=== PATIENT | female | born 1935 | race Caucasian/White ===

== ENCOUNTER 2020-08-14 15:54 | Inpatient (IN) | payer MEDICARE ==
[~2020-08-14] VITALS: Ht 167.6 cm; Wt 79.4 kg
[2020-08-14 16:06] VITALS: BP 125/75
[2020-08-14 16:12] LABS: BASO # 0.1 10*3/uL (0.0-0.1); BASO % 0.4 % (0.0-1.0); EOS # 0.1 10*3/uL (0.0-0.4); EOS % 0.8 % (1.0-4.0); HEMATOCRIT 46.7 % (37.0-47.0); LYMPH # 2.6 10*3/uL (1.3-4.4); LYMPH % 17.6 % (27.0-41.0); MEAN CELL VOLUME 91.2 fl (81.0-99.0); MEAN CORPUSCULAR HGB 29.3 pg (27.0-31.0); MEAN CORPUSCULAR HGB CONC 32.1 g/dl (33.0-37.0); MEAN PLATELET VOLUME 9.5 fl (9.6-12.3); MONO # 0.8 10*3/uL (0.1-1.0); MONO % 5.7 % (3.0-9.0); NEUT # 11.1 10*3/uL (2.3-7.9); PLATELET COUNT AUTOMATED 350 10*3/uL (130-400); RED BLOOD COUNT 5.12 10*6/uL (4.10-5.10); RED CELL DISTRI WIDTH 13.5 % (0-14.5); WHITE BLOOD COUNT 14.8 10*3/uL (4.8-10.8)
[2020-08-14 16:23] LABS: ACT PARTIAL THROMBO TIME 25.8 SECONDS (20.0-32.1)
[2020-08-14 16:32] LABS: ALBUMIN 3.1 gm/dl (3.1-4.5); BUN 15 mg/dl (7-24); CHLORIDE 106 mmol/L (98-107); CREATININE 0.88 mg/dL (0.55-1.02); LIPASE 86 U/L (73-393); POTASSIUM 3.6 mmol/L (3.5-5.1); SGOT/AST 21 IU/L (3-35); SGPT/ALT 24 U/L (12-78); SODIUM 139 mmol/L (136-145)
[2020-08-14 16:36] LABS: ALKALINE PHOSPHATASE 123 U/L (45-117); TOTAL PROTEIN 8.5 gm/dL (6.4-8.2); TROPONIN I < 0.015 ng/ml (<0.045)
[2020-08-14 17:15] LABS: BILIRUBIN Negative (Negative); BLOOD Negative (Negative); CLARITY Cloudy (Clear); COLOR Yellow (Yellow); GLUCOSE Negative (Negative); KETONE Negative (Negative); LEUKO ESTERASE 1+ (Negative); NITRITE Positive (Negative); PH 6.5 (4.5-8.0); UROBILINOGEN 0.2 E.U./dl (0.0-1.0)
[2020-08-14 17:34] LABS: BACTERIA 3+; EPITHELIAL CELLS TNTC; RBC 0-2 rbc/hpf (0-2); WBC 21-30 wbc/hpf (0-5)
[2020-08-14] MEDS ORDERED: DILTIAZEM 24HR180 MG PO (17:58)
[2020-08-14] MEDS ORDERED: POTASSIUM CHLO10 ME5 PO (17:58)
[2020-08-14] MEDS ORDERED: CITALOPRAM10 MG PO (17:58)
[2020-08-14] MEDS ORDERED: FUROSEMIDE40 MG PO (17:59)
[2020-08-14] MEDS ORDERED: METOPROLOL25 MG PO (17:59)
[2020-08-14] MEDS ORDERED: DIGOXIN125 MCG PO (17:59)
[2020-08-14] MEDS ORDERED: ATORVASTATIN CA10 M1 PO (18:00)
[2020-08-14] MEDS ORDERED: ELIQUIS5 M1 PO (18:02)
[2020-08-14 19:12] VITALS: BP 131/66
[2020-08-14 21:39] VITALS: BP 139/70
[2020-08-14 21:45] VITALS: BP 129/82
[2020-08-15] VITALS: BP 128/60
[2020-08-15 06:14] LABS: BASO # 0.1 10*3/uL (0.0-0.1); BASO % 0.6 % (0.0-1.0); EOS # 0.2 10*3/uL (0.0-0.4); EOS % 1.2 % (1.0-4.0); HEMATOCRIT 42.9 % (37.0-47.0); LYMPH # 2.4 10*3/uL (1.3-4.4); LYMPH % 16.5 % (27.0-41.0); MEAN CELL VOLUME 93.5 fl (81.0-99.0); MEAN CORPUSCULAR HGB 29.6 pg (27.0-31.0); MEAN CORPUSCULAR HGB CONC 31.7 g/dl (33.0-37.0); MEAN PLATELET VOLUME 10.1 fl (9.6-12.3); MONO # 1.1 10*3/uL (0.1-1.0); MONO % 7.3 % (3.0-9.0); NEUT # 10.7 10*3/uL (2.3-7.9); NEUT % 73.8 % (47.0-73.0); PLATELET COUNT AUTOMATED 305 10*3/uL (130-400); RED BLOOD COUNT 4.59 10*6/uL (4.10-5.10); RED CELL DISTRI WIDTH 13.5 % (0-14.5); WHITE BLOOD COUNT 14.4 10*3/uL (4.8-10.8)
[2020-08-15 08:00] VITALS: BP 109/50
[2020-08-15 12:00] VITALS: BP 106/58
[2020-08-15 16:00] VITALS: BP 116/81
[2020-08-15 17:41] VITALS: BP 104/68
[2020-08-15 20:00] VITALS: BP 116/65
[2020-08-16] VITALS: BP 112/90
[2020-08-16 08:00] VITALS: BP 144/86
[2020-08-16 12:00] VITALS: BP 123/67
[2020-08-16 16:00] VITALS: BP 99/55
[2020-08-16 20:00] VITALS: BP 108/58
[2020-08-17 00:01] VITALS: BP 116/50
[2020-08-17 06:13] LABS: BASO % 0.1 % (0.0-1.0); HEMATOCRIT 40.1 % (37.0-47.0); LYMPH # 1.9 10*3/uL (1.3-4.4); LYMPH % 10.9 % (27.0-41.0); MEAN CELL VOLUME 91.3 fl (81.0-99.0); MEAN CORPUSCULAR HGB 29.6 pg (27.0-31.0); MEAN CORPUSCULAR HGB CONC 32.4 g/dl (33.0-37.0); MEAN PLATELET VOLUME 9.8 fl (9.6-12.3); MONO # 1.3 10*3/uL (0.1-1.0); MONO % 7.6 % (3.0-9.0); NEUT # 13.9 10*3/uL (2.3-7.9); NEUT % 80.9 % (47.0-73.0); PLATELET COUNT AUTOMATED 307 10*3/uL (130-400); RED BLOOD COUNT 4.39 10*6/uL (4.10-5.10); RED CELL DISTRI WIDTH 13.3 % (0-14.5); WHITE BLOOD COUNT 17.2 10*3/uL (4.8-10.8)
[2020-08-17 08:00] VITALS: BP 99/50
[2020-08-17 12:00] VITALS: BP 114/62
[2020-08-17 16:00] VITALS: BP 101/48
[2020-08-17 19:06] VITALS: BP 112/60
[2020-08-17 20:00] VITALS: BP 109/61
[2020-08-18] VITALS: BP 100/55
[2020-08-18 06:31] LABS: BASO % 0.2 % (0.0-1.0); EOS # 0.1 10*3/uL (0.0-0.4); HEMATOCRIT 42.3 % (37.0-47.0); LYMPH # 2.7 10*3/uL (1.3-4.4); LYMPH % 19.1 % (27.0-41.0); MEAN CELL VOLUME 92.6 fl (81.0-99.0); MEAN CORPUSCULAR HGB 29.3 pg (27.0-31.0); MEAN CORPUSCULAR HGB CONC 31.7 g/dl (33.0-37.0); MEAN PLATELET VOLUME 9.6 fl (9.6-12.3); MONO # 1.2 10*3/uL (0.1-1.0); MONO % 8.8 % (3.0-9.0); NEUT # 9.9 10*3/uL (2.3-7.9); NEUT % 70.3 % (47.0-73.0); PLATELET COUNT AUTOMATED 285 10*3/uL (130-400); RED BLOOD COUNT 4.57 10*6/uL (4.10-5.10); RED CELL DISTRI WIDTH 13.5 % (0-14.5); WHITE BLOOD COUNT 14.1 10*3/uL (4.8-10.8)
[2020-08-18 06:43] LABS: BUN 16 mg/dl (7-24); CHLORIDE 107 mmol/L (98-107); CREATININE 0.66 mg/dL (0.55-1.02); POTASSIUM 3.6 mmol/L (3.5-5.1); SODIUM 142 mmol/L (136-145)
[2020-08-18 08:00] VITALS: BP 109/66
[2020-08-18] MEDS ORDERED: CIPRO500 MG PO (11:12)
[2020-08-18 12:00] VITALS: BP 114/61
== END 2020-08-18 14:30 | disposition home or self-care (01) | DRG 690 ==
LOC: ED 15:54 → EDHOLD 18:56 → 4E 18:56
PROVIDERS: Emergency Medicine; ADMIT Internal Medicine; ATTEND Internal Medicine
DX: N39.0 Urinary tract infection, site not specified (principal); I48.21 Permanent atrial fibrillation; F33.0 Major depressive disorder, recurrent, mild; I50.22 Chronic systolic (congestive) heart failure; R62.7 Adult failure to thrive; B96.20 Unspecified Escherichia coli [E. coli] as the cause of diseases classified elsewhere; E78.2 Mixed hyperlipidemia; I11.0 Hypertensive heart disease with heart failure; G30.9 Alzheimer's disease, unspecified; F02.80 Dementia in other diseases classified elsewhere, unspecified severity, without behavioral disturbance, psychotic disturbance, mood disturbance, and anxiety; Z68.28 Body mass index [BMI] 28.0-28.9, adult; Z79.01 Long term (current) use of anticoagulants; Z88.8 Allergy status to other drugs, medicaments and biological substances

== ENCOUNTER 2022-01-02 13:20 | Inpatient (IN) | payer MEDICARE ==
[~2022-01-02] VITALS: Ht 167.6 cm; Wt 75.7 kg
[~2022-01-02 13:20] MED LIST: ASPIRIN CHEWABL81 MG PO; ATORVASTATIN CA10 M1 PO; CIPRO500 MG PO; CITALOPRAM10 MG PO; DIGOX125 MCG PO; DIGOXIN125 MCG PO; DILTIAZEM 24HR180 MG PO; ELIQUIS5 M1 PO; FUROSEMIDE40 MG PO; LISINOPRIL2.5 MG PO; METOPROLOL25 MG PO; POTASSIUM CHLO10 ME5 PO; TOPROL XL50 M1 PO
[2022-01-02 13:24] VITALS: BP 107/53
[2022-01-02 13:51] LABS: HEMATOCRIT 40.1 % (37.0-47.0); MEAN CELL VOLUME 91.1 fl (81.0-99.0); MEAN CORPUSCULAR HGB 28.9 pg (27.0-31.0); MEAN CORPUSCULAR HGB CONC 31.7 g/dl (33.0-37.0); MEAN PLATELET VOLUME 9.3 fl (9.6-12.3); PLATELET COUNT AUTOMATED 367 10*3/uL (130-400); RED CELL DISTRI WIDTH 13.7 % (0-14.5); WHITE BLOOD COUNT 33.9 10*3/uL (4.8-10.8)
[2022-01-02 13:52] LABS: MANUAL DIFF REFLEX YES
[2022-01-02 14:01] LABS: BILIRUBIN Negative (Negative); BLOOD Trace-Lysed (Negative); CLARITY Clear (Clear); COLOR Yellow (Yellow); GLUCOSE Negative (Negative); KETONE Negative (Negative); LEUKO ESTERASE 1+ (Negative); NITRITE Positive (Negative); PH 6.5 (4.5-8.0)
[2022-01-02 14:08] LABS: ALKALINE PHOSPHATASE 123 U/L (45-117); BUN 16 mg/dl (7-24); CHLORIDE 102 mmol/L (98-107); CREATININE 0.93 mg/dL (0.55-1.02); LIPASE 75 U/L (73-393); POTASSIUM 3.7 mmol/L (3.5-5.1); SGOT/AST 104 IU/L (3-35); SGPT/ALT 51 U/L (12-78); SODIUM 139 mmol/L (136-145); TOTAL PROTEIN 7.3 gm/dL (6.4-8.2)
[2022-01-02 14:12] LABS: TOTAL CELLS COUNTED 100 #CELLS
[2022-01-02 14:13] LABS: PLATELET SUFFICIENCY NORMAL (NORMAL)
[2022-01-02 14:15] LABS: BACTERIA 3+; WBC 16-20 wbc/hpf (0-5)
[2022-01-02 16:51] VITALS: BP 128/70
[2022-01-02 19:05] VITALS: BP 133/65
[2022-01-02] MEDS ORDERED: DILTIAZEM 24HR180 MG PO (20:34)
[2022-01-02] MEDS ORDERED: Lopressor25 MG PO (20:36)
[2022-01-02] MEDS ORDERED: TRAZODONE50 MG PO (20:36)
[2022-01-03] VITALS: BP 104/59
[2022-01-03 04:55] LABS: BUN 15 mg/dl (7-24); CHLORIDE 102 mmol/L (98-107); CREATININE 0.96 mg/dL (0.55-1.02); POTASSIUM 3.8 mmol/L (3.5-5.1); SODIUM 137 mmol/L (136-145)
[2022-01-03 06:10] LABS: HEMATOCRIT 39.2 % (37.0-47.0); MEAN CELL VOLUME 93.1 fl (81.0-99.0); MEAN CORPUSCULAR HGB 28.3 pg (27.0-31.0); MEAN CORPUSCULAR HGB CONC 30.4 g/dl (33.0-37.0); MEAN PLATELET VOLUME 9.7 fl (9.6-12.3); PLATELET COUNT AUTOMATED 338 10*3/uL (130-400); RED BLOOD COUNT 4.21 10*6/uL (4.10-5.10); RED CELL DISTRI WIDTH 13.9 % (0-14.5)
[2022-01-03 06:15] LABS: MANUAL DIFF REFLEX YES
[2022-01-03 06:16] LABS: WHITE BLOOD COUNT 43.9 10*3/uL (4.8-10.8)
[2022-01-03 07:26] LABS: TOTAL CELLS COUNTED 100 #CELLS; TOXIC GRANULATION SLIGHT
[2022-01-03 07:27] LABS: BURR CELLS MODERATE; PLATELET SUFFICIENCY NORMAL (NORMAL); POLYCHROMASIA SLIGHT; ROULEAUX SLIGHT
[2022-01-03 08:00] VITALS: BP 108/73
[2022-01-03 12:00] VITALS: BP 97/50
[2022-01-03 16:00] VITALS: BP 116/60
[2022-01-03 20:00] VITALS: BP 102/48
[2022-01-04 06:22] LABS: POTASSIUM 3.4 mmol/L (3.5-5.1)
[2022-01-04 06:34] LABS: MEAN CELL VOLUME 92.3 fl (81.0-99.0); MEAN CORPUSCULAR HGB 28.7 pg (27.0-31.0); MEAN CORPUSCULAR HGB CONC 31.1 g/dl (33.0-37.0); MEAN PLATELET VOLUME 10.2 fl (9.6-12.3); PLATELET COUNT AUTOMATED 316 10*3/uL (130-400)
[2022-01-04 06:36] LABS: CREATININE 1.13 mg/dL (0.55-1.02)
[2022-01-04 06:39] LABS: MANUAL DIFF REFLEX YES
[2022-01-04 07:37] LABS: TOTAL CELLS COUNTED 100 #CELLS
[2022-01-04 07:38] LABS: BURR CELLS MODERATE; POLYCHROMASIA SLIGHT; TOXIC GRANULATION SLIGHT; VACUOLATION OF NEUTROPHILS SLIGHT
[2022-01-04 07:39] LABS: PLATELET SUFFICIENCY NORMAL (NORMAL); ROULEAUX SLIGHT
[2022-01-04 08:00] VITALS: BP 124/67
[2022-01-04 16:00] VITALS: BP 124/67
[2022-01-04 20:00] VITALS: BP 124/67; BP 92/54
[2022-01-05] VITALS: BP 98/47
[2022-01-05 06:11] LABS: BUN 24 mg/dl (7-24); CHLORIDE 106 mmol/L (98-107); POTASSIUM 3.1 mmol/L (3.5-5.1); SODIUM 138 mmol/L (136-145)
[2022-01-05 06:19] LABS: CREATININE 0.94 mg/dL (0.55-1.02)
[2022-01-05 06:26] LABS: HEMATOCRIT 32.6 % (37.0-47.0); MEAN CELL VOLUME 91.1 fl (81.0-99.0); MEAN CORPUSCULAR HGB 29.1 pg (27.0-31.0); MEAN CORPUSCULAR HGB CONC 31.9 g/dl (33.0-37.0); PLATELET COUNT AUTOMATED 294 10*3/uL (130-400); RED BLOOD COUNT 3.58 10*6/uL (4.10-5.10); RED CELL DISTRI WIDTH 14.1 % (0-14.5)
[2022-01-05 06:27] LABS: MANUAL DIFF REFLEX YES
[2022-01-05 07:16] LABS: BURR CELLS FEW; POLYCHROMASIA SLIGHT; TOTAL CELLS COUNTED 100 #CELLS; TOXIC GRANULATION SLIGHT
[2022-01-05 07:17] LABS: PLATELET SUFFICIENCY NORMAL (NORMAL)
[2022-01-05 08:00] VITALS: BP 115/59
[2022-01-05 16:00] VITALS: BP 112/63
[2022-01-06] VITALS: BP 111/61
[2022-01-06 08:00] VITALS: BP 101/64
[2022-01-06 12:00] VITALS: BP 114/70
[2022-01-06 16:00] VITALS: BP 109/56
[2022-01-07] VITALS: BP 98/47
[2022-01-07 06:28] LABS: BASO % 0.1 % (0.0-1.0); EOS # 0.1 10*3/uL (0.0-0.4); EOS % 0.8 % (1.0-4.0); LYMPH # 1.1 10*3/uL (1.3-4.4); LYMPH % 7.2 % (27.0-41.0); MEAN CELL VOLUME 94.2 fl (81.0-99.0); MEAN CORPUSCULAR HGB 28.5 pg (27.0-31.0); MEAN CORPUSCULAR HGB CONC 30.3 g/dl (33.0-37.0); MEAN PLATELET VOLUME 9.6 fl (9.6-12.3); MONO % 6.5 % (3.0-9.0); NEUT # 13.4 10*3/uL (2.3-7.9); NEUT % 84.7 % (47.0-73.0); PLATELET COUNT AUTOMATED 301 10*3/uL (130-400); RED BLOOD COUNT 3.82 10*6/uL (4.10-5.10); RED CELL DISTRI WIDTH 14.5 % (0-14.5); WHITE BLOOD COUNT 15.8 10*3/uL (4.8-10.8)
[2022-01-07 06:33] LABS: BUN 19 mg/dl (7-24); CHLORIDE 107 mmol/L (98-107); POTASSIUM 3.8 mmol/L (3.5-5.1); SODIUM 140 mmol/L (136-145)
[2022-01-07 08:00] VITALS: BP 115/45
[2022-01-07] MEDS ORDERED: AUGMENTIN 875-875 MG PO (09:54)
[2022-01-07] MEDS ORDERED: CARDIZEM CD120 M2 PO (09:54)
[2022-01-07 10:06] VITALS: BP 147/68
[2022-01-07 13:52] VITALS: BP 130/56
== END 2022-01-07 16:41 | DRG 871 ==
LOC: ED 13:20 → EDHOLD 17:38 → 5E 17:38
PROVIDERS: Physician Assistant; ADMIT Internal Medicine; ATTEND Internal Medicine
DX: A41.9 Sepsis, unspecified organism (principal); E43 Unspecified severe protein-calorie malnutrition; J18.9 Pneumonia, unspecified organism; I50.23 Acute on chronic systolic (congestive) heart failure; I42.9 Cardiomyopathy, unspecified; N10 Acute pyelonephritis; I48.21 Permanent atrial fibrillation; I31.3 Pericardial effusion (noninflammatory); N39.0 Urinary tract infection, site not specified; A15.0 Tuberculosis of lung; J96.10 Chronic respiratory failure, unspecified whether with hypoxia or hypercapnia; R62.7 Adult failure to thrive; F51.04 Psychophysiologic insomnia; I11.0 Hypertensive heart disease with heart failure; E87.6 Hypokalemia; B96.4 Proteus (mirabilis) (morganii) as the cause of diseases classified elsewhere; K80.20 Calculus of gallbladder without cholecystitis without obstruction; G30.1 Alzheimer's disease with late onset; F02.80 Dementia in other diseases classified elsewhere, unspecified severity, without behavioral disturbance, psychotic disturbance, mood disturbance, and anxiety; I27.20 Pulmonary hypertension, unspecified; I07.1 Rheumatic tricuspid insufficiency; Z88.8 Allergy status to other drugs, medicaments and biological substances; Z68.28 Body mass index [BMI] 28.0-28.9, adult

== ENCOUNTER 2022-03-01 14:07 | Inpatient (IN) | payer MEDICARE ==
[~2022-03-01] VITALS: Ht 167.6 cm; Wt 90.7 kg
[~2022-03-01 14:07] MED LIST changes: +AUGMENTIN 875-875 MG PO; +CARDIZEM CD120 M2 PO; +Lopressor25 MG PO; +TRAZODONE50 MG PO
[2022-03-01 14:08] VITALS: BP 103/41
[2022-03-01 14:44] LABS: BILIRUBIN Negative (Negative); BLOOD Negative (Negative); CLARITY Clear (Clear); COLOR Yellow (Yellow); GLUCOSE Negative (Negative); KETONE Negative (Negative); LEUKO ESTERASE 2+ (Negative); NITRITE Positive (Negative); UROBILINOGEN 0.2 E.U./dl (0.0-1.0)
[2022-03-01 15:07] LABS: BACTERIA 1+; RBC 0-2 rbc/hpf (0-2)
[2022-03-01 15:22] LABS: BASO % 0.3 % (0.0-1.0); EOS # 0.3 10*3/uL (0.0-0.4); EOS % 1.9 % (1.0-4.0); HEMATOCRIT 36.5 % (37.0-47.0); LYMPH # 1.7 10*3/uL (1.3-4.4); LYMPH % 11.2 % (27.0-41.0); MEAN CELL VOLUME 90.6 fl (81.0-99.0); MEAN PLATELET VOLUME 9.8 fl (9.6-12.3); MONO # 1.1 10*3/uL (0.1-1.0); NEUT # 11.8 10*3/uL (2.3-7.9); NEUT % 78.7 % (47.0-73.0); PLATELET COUNT AUTOMATED 249 10*3/uL (130-400); RED BLOOD COUNT 4.03 10*6/uL (4.10-5.10)
[2022-03-01 15:39] LABS: ACT PARTIAL THROMBO TIME 25.1 SECONDS (20.0-32.1)
[2022-03-01 15:41] LABS: ALKALINE PHOSPHATASE 123 U/L (45-117); BUN 14 mg/dl (7-24); CHLORIDE 105 mmol/L (98-107); CREATININE 0.94 mg/dL (0.55-1.02); POTASSIUM 4.3 mmol/L (3.5-5.1); SGOT/AST 22 IU/L (3-35); SGPT/ALT 23 U/L (12-78); SODIUM 138 mmol/L (136-145); TOTAL PROTEIN 6.9 gm/dL (6.4-8.2)
[2022-03-01 20:25] VITALS: BP 96/49
[2022-03-02] VITALS: BP 100/54
[2022-03-02 06:31] LABS: BASO # 0.1 10*3/uL (0.0-0.1); BASO % 0.4 % (0.0-1.0); EOS # 0.2 10*3/uL (0.0-0.4); EOS % 1.1 % (1.0-4.0); HEMATOCRIT 37.3 % (37.0-47.0); LYMPH # 1.9 10*3/uL (1.3-4.4); LYMPH % 12.9 % (27.0-41.0); MEAN CORPUSCULAR HGB 28.3 pg (27.0-31.0); MEAN CORPUSCULAR HGB CONC 31.1 g/dl (33.0-37.0); MEAN PLATELET VOLUME 9.9 fl (9.6-12.3); MONO % 6.8 % (3.0-9.0); NEUT # 11.4 10*3/uL (2.3-7.9); NEUT % 77.6 % (47.0-73.0); PLATELET COUNT AUTOMATED 290 10*3/uL (130-400); RED CELL DISTRI WIDTH 15.8 % (0-14.5); WHITE BLOOD COUNT 14.7 10*3/uL (4.8-10.8)
[2022-03-02 06:49] LABS: BUN 15 mg/dl (7-24); CHLORIDE 104 mmol/L (98-107); CHOLESTEROL 147 mg/dL (<200); CREATININE 0.92 mg/dL (0.55-1.02); POTASSIUM 4.1 mmol/L (3.5-5.1); SGOT/AST 19 IU/L (3-35); SGPT/ALT 22 U/L (12-78); SODIUM 137 mmol/L (136-145); TRIGLYCERIDES 173 mg/dl (<150)
[2022-03-02 06:55] LABS: ALKALINE PHOSPHATASE 123 U/L (45-117); LDL CHOLESTEROL 47 mg/dL (9-159); TOTAL PROTEIN 7.2 gm/dL (6.4-8.2)
[2022-03-02 07:57] LABS: VITAMIN D, 25-HYDROXY 29.9 ng/mL (30-100)
[2022-03-02 08:00] VITALS: BP 148/90
[2022-03-02] MEDS ORDERED: DONEPEZIL HCL10 MG PO (11:36)
[2022-03-02] MEDS ORDERED: DILTIAZEM 24HR180 MG PO (11:37)
[2022-03-02 12:00] VITALS: BP 119/73
[2022-03-02 16:00] VITALS: BP 120/94
[2022-03-02 20:00] VITALS: BP 130/86
[2022-03-03] VITALS: BP 98/56
[2022-03-03 06:19] LABS: BASO % 0.3 % (0.0-1.0); EOS # 0.3 10*3/uL (0.0-0.4); EOS % 2.1 % (1.0-4.0); HEMATOCRIT 33.3 % (37.0-47.0); LYMPH # 1.7 10*3/uL (1.3-4.4); LYMPH % 14.8 % (27.0-41.0); MEAN CORPUSCULAR HGB 28.1 pg (27.0-31.0); MEAN CORPUSCULAR HGB CONC 30.9 g/dl (33.0-37.0); MEAN PLATELET VOLUME 9.6 fl (9.6-12.3); MONO % 8.2 % (3.0-9.0); NEUT # 8.6 10*3/uL (2.3-7.9); NEUT % 73.4 % (47.0-73.0); PLATELET COUNT AUTOMATED 270 10*3/uL (130-400); RED BLOOD COUNT 3.66 10*6/uL (4.10-5.10); RED CELL DISTRI WIDTH 16.2 % (0-14.5); WHITE BLOOD COUNT 11.7 10*3/uL (4.8-10.8)
[2022-03-03 06:33] LABS: BUN 13 mg/dl (7-24); CHLORIDE 107 mmol/L (98-107); CREATININE 0.84 mg/dL (0.55-1.02); SODIUM 140 mmol/L (136-145)
[2022-03-03 08:00] VITALS: BP 115/89
[2022-03-03 12:00] VITALS: BP 101/58
[2022-03-03 16:00] VITALS: BP 108/72
[2022-03-03 20:00] VITALS: BP 129/62
[2022-03-04] VITALS: BP 121/63
[2022-03-04 06:16] LABS: BASO # 0.1 10*3/uL (0.0-0.1); BASO % 0.4 % (0.0-1.0); EOS # 0.4 10*3/uL (0.0-0.4); EOS % 3.4 % (1.0-4.0); HEMATOCRIT 35.4 % (37.0-47.0); LYMPH # 1.6 10*3/uL (1.3-4.4); LYMPH % 13.8 % (27.0-41.0); MEAN CELL VOLUME 91.5 fl (81.0-99.0); MEAN CORPUSCULAR HGB 28.7 pg (27.0-31.0); MEAN CORPUSCULAR HGB CONC 31.4 g/dl (33.0-37.0); MEAN PLATELET VOLUME 9.6 fl (9.6-12.3); MONO # 0.7 10*3/uL (0.1-1.0); MONO % 6.3 % (3.0-9.0); NEUT # 8.7 10*3/uL (2.3-7.9); NEUT % 75.2 % (47.0-73.0); PLATELET COUNT AUTOMATED 329 10*3/uL (130-400); RED BLOOD COUNT 3.87 10*6/uL (4.10-5.10); RED CELL DISTRI WIDTH 16.2 % (0-14.5); WHITE BLOOD COUNT 11.5 10*3/uL (4.8-10.8)
[2022-03-04 08:00] VITALS: BP 122/63
[2022-03-04] MEDS ORDERED: VITAMIN D350 MC2 PO (11:34)
[2022-03-04] MEDS ORDERED: XARE20MG PO (11:34)
[2022-03-04] MEDS ORDERED: XARE15TA PO (11:34)
[2022-03-04 12:00] VITALS: BP 116/57
== END 2022-03-04 15:43 | DRG 871 ==
LOC: ED 14:07 → EDHOLD 16:12 → 5E 16:12 → EDHOLD 17:56 → 5E 20:12
PROVIDERS: Emergency Medicine; Internal Medicine; ADMIT Internal Medicine; ATTEND Internal Medicine
DX: A41.9 Sepsis, unspecified organism (principal); E43 Unspecified severe protein-calorie malnutrition; G93.41 Metabolic encephalopathy; I82.411 Acute embolism and thrombosis of right femoral vein; N39.0 Urinary tract infection, site not specified; I82.431 Acute embolism and thrombosis of right popliteal vein; I82.441 Acute embolism and thrombosis of right tibial vein; R65.20 Severe sepsis without septic shock; I48.91 Unspecified atrial fibrillation; Z20.822 Contact with and (suspected) exposure to COVID-19; I50.9 Heart failure, unspecified; I11.0 Hypertensive heart disease with heart failure; E78.5 Hyperlipidemia, unspecified; F03.90 Unspecified dementia, unspecified severity, without behavioral disturbance, psychotic disturbance, mood disturbance, and anxiety; D64.9 Anemia, unspecified; D72.829 Elevated white blood cell count, unspecified; E66.9 Obesity, unspecified; R73.9 Hyperglycemia, unspecified; Z88.8 Allergy status to other drugs, medicaments and biological substances; Z90.710 Acquired absence of both cervix and uterus; Z85.038 Personal history of other malignant neoplasm of large intestine; Z68.32 Body mass index [BMI] 32.0-32.9, adult